=== PATIENT | male | born 1995 | race Hispanic/Latino ===

== ENCOUNTER 2024-02-11 13:08 | Observation (INO) | payer SELFPAY ==
[2024-02-11] MEDS ORDERED: ONDANSETRON 4 MG/2 ML VIAL ONE (13:29)
[2024-02-11] MEDS ORDERED: NA CHLORIDE 0.9% 1,000 ML ONE ×2 (13:29→14:38)
[2024-02-11 13:44] LABS: Absolute Lymphocytes (CBC) 1.2 K/uL (0.7-4.9); Absolute Monocytes 0.9 K/uL (0.1-1.3); Absolute Neutrophil 5.5 K/uL (1.8-8.0); Basophils % 0.6 % (0-1.3); Eosinophils % 0.6 % (0-4.4); Hematocrit 49.4 % (39.6-49.0); Hemoglobin 17.1 g/dL (13.6-17.9); Lymphocytes % 15.1 % (15.3-44.8); MCH 32.9 pg (27.0-35.0); MCHC 34.6 g/dL (32.0-36.0); MPV 10.9 fL (7.6-11.3); Monocytes % 11.7 % (3.3-12.3); Nucleated Red Blood Cells % 0.1 % (0-0); Platelets 258 thou/uL (152-406); Red Cell Distribution Width 12.6 % (12.1-15.2)
[2024-02-11 14:02] LABS: Albumin 5.6 g/dL (3.4-5.0); Albumin/Globulin Ratio 1.4 (1.1-1.8); Anion Gap 16.2 mEq/L (5.0-15.0); Bilirubin Total 1.3 mg/dL (0.2-1.0); Globulin 4.1 g/dL (2.3-3.5); Potassium 3.2 mEq/L (3.5-5.1); Protein, Total 9.7 g/dL (6.4-8.2)
--- NOTE | 2024-02-11 14:15 | ER ---
Nurse's Notes [facility] Name: Moises Lambert Age: 28 yrs Sex: Male : 1995 Arrival Date: 02/11/2024 Time: 13:08 Bed 20 Private MD: Diagnosis: Dehydration;Acute kidney failure, unspecified Presentation: 02/10 13:15 Chief complaint: Patient states: Pt c/o abdominal cramping, vomiting and feeling week dd2 after working in the sun all day Friday. Pt states he's trying to drink but unable to. Coronavirus screen: At this time, the client does not indicate any symptoms associated with coronavirus-19. Ebola Screen: No symptoms or risks identified at this time. Initial Sepsis Screen: Does the patient meet any 2 criteria? No. Patient's initial sepsis screen is negative. Does the patient have a suspected source of infection? No. Patient's initial sepsis screen is negative. Risk Assessment: Do you want to hurt yourself or someone else? Patient reports no desire to harm self or others. Onset of symptoms is unknown. 13:15 Method Of Arrival: Ambulatory dd2 13:15 Acuity: JUAN DANIEL 3 dd2 Triage Assessment: 13:18 General: Appears uncomfortable, ill, Behavior is calm, cooperative. Pain: Complains of dd2 pain in abdomen. Derm: No deficits noted. Historical: - Allergies: 13:18 No Known Allergies; dd2 - Home Meds: 13:18 None [Active]; dd2 - PMHx: 13:18 None; dd2 - PSHx: 13:18 None; dd2 - Immunization history:: Adult Immunizations unknown. - Infectious Disease History:: Denies. - Social history:: Smoking status: Patient denies any tobacco usage or history of. Patient uses street drugs, marijuana. Screenin:45 [facility] ED Fall Risk Assessment (Adult) History of falling in the last 3 months, ph including since admission No falls in past 3 months (0 pts) Confusion or Disorientation No (0 pts) Intoxicated or Sedated No (0 pts) Impaired Gait No (0 pts) Mobility Assist Device Used No (0 pt) Altered Elimination No (0 pt) Score/Fall Risk Level 0 - 2 = Low Risk Oriented to surroundings, Maintained a safe environment, Hourly rounding (assess needs \T\ fall precautionary measures) done. Abuse screen: Denies threats or abuse. Denies injuries from another. Nutritional screening: No deficits noted. Tuberculosis screening: No symptoms or risk factors identified. Assessment: 13:44 General: Appears in no apparent distress. comfortable, slender, well groomed, Behavior ph is calm, cooperative, appropriate for age. Pain: Complains of pain in cramping in abdomen. Neuro: Level of Consciousness is awake, alert, obeys commands, Oriented to person, place, time, situation. Cardiovascular: Capillary refill < 3 seconds in bilateral fingers Patient's skin is warm and dry. Respiratory: Airway is patent Respiratory effort is even, unlabored. GI: Reports cramping, nausea, vomiting. : Reports decreased urination w/ dark urine. Derm: Skin is pink, warm \T\ dry. Vital Signs: 13:15 BP 124 / 88; Pulse 86; Resp 14; Temp 97.3; Pulse Ox 97% ; Weight 52.16 kg; Height 5 ft. dd2 6 in. ; 13:46 BP 122 / 85; Pulse 58; Resp 18; Pulse Ox 99% on R/A; ph 16:22 BP 133 / 75; Pulse 68; Resp 18; Temp 97.9; Pulse Ox 98% on R/A; ph 13:15 Body Mass Index 18.56 (52.16 kg, 167.64 cm) dd2 ED Course: 13:11 Patient arrived in ED. mr 13:13 Marques NildaJOSE ANGEL pastor [facility] kb 13:13 Riaz Jose MD is Attending Physician. kb 13:18 Triage completed. dd2 13:18 Arm band placed on left wrist. Patient placed in an exam room, on a stretcher, on pulse dd2 oximetry. 13:20 Smita Broderick, JB is Primary Nurse. ph 13:35 Initial lab(s) drawn, by me, sent to lab. Inserted saline lock: 20 gauge in right ph antecubital area, using aseptic technique. Blood collected. Flushed with 10 mL NS. 13:46 Patient has correct armband on for positive identification. Pulse ox on. NIBP on. Door ph closed. Noise minimized. Warm blanket given. 14:15 Danny Figueredo MD is Hospitalizing Provider. kb 14:31 CT Abd/Pelvis - Without Contrast In Process Unspecified. EDMS 16:22 No provider procedures requiring assistance completed. Patient admitted, IV remains in ph place. Administered Medications: 13:35 Drug: NS 0.9% IV 1000 ml IV at 1 bolus Per protocol; 1000 mL bolus Route: IV; Rate: 1 ph bolus; Site: right antecubital; 14:45 Follow up: Response: No adverse reaction; IV Status: Completed infusion; IV Intake: ph 1000ml 13:35 Drug: Ondansetron IVP 4 mg IVP once; over 2 minutes Route: IVP; Site: right antecubital;ph 14:45 Follow up: Response: No adverse reaction ph 14:44 Drug: NS 0.9% IV 1000 ml IV at 1000 ml once Route: IV; Rate: 1000 ml; Site: right ph antecubital; 16:22 Follow up: Response: No adverse reaction; IV Status: Completed infusion; IV Intake: ph 1000ml 14:44 Drug: Potassium Chloride PO 40 mEq PO once Route: PO; ph 16:22 Follow up: Response: No adverse reaction ph Medication: 13:46 VIS not applicable for this client. ph Intake: 14:45 IV: 1000ml; Total: 1000ml. ph 16:22 IV: 1000ml; Total: 2000ml. ph Outcome: 14:15 Decision to Hospitalize by Provider. kb 16:22 Admitted to Med/surg accompanied by tech, via wheelchair, room 218, with chart, ph 16:22 Condition: stable 16:22 Instructed on the need for admit, 16:23 Patient left the ED. ph Signatures: Dispatcher [employer] EDCA Nilda Mohan, DAVID-C CHAINMAN-Ly Marti, Reg Reg mr Smita Broderick, RN RN ph STANISLAV DIAZ, RN RN dd2
--- NOTE | 2024-02-11 14:15 | EDPHYS ---
Physician Documentation [facility] Name: Moises Lambert Age: 28 yrs Sex: Male : 1995 Arrival Date: 02/11/2024 Time: 13:08 Bed 20 Private MD: ED Physician Riaz Jose HPI: 02/10 13:18 This 28 yrs old Male presents to ER via Unassigned with complaints of kb Dehydrated, Heat Exposure. 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 States he was sent home on Friday because he wasn't feeling well, went back on Friday but started feeling bad again around 10AM so he was sent home again. States he last urinated last night and it was very dark. States he has been trying to drink fluids, but has not been able to keep them down. Denies fever, diarrhea. . Historical: - Allergies: 13:18 No Known Allergies; dd2 - Home Meds: 13:18 None [Active]; dd2 - PMHx: 13:18 None; dd2 - PSHx: 13:18 None; dd2 - Immunization history:: Adult Immunizations unknown. - Infectious Disease History:: Denies. - Social history:: Smoking status: Patient denies any tobacco usage or history of. Patient uses street drugs, marijuana. ROS: 13:17 Constitutional: As per HPI kb Exam: 13:17 Constitutional: This is a well developed, well nourished patient who is awake, alert, kb and in no acute distress. Head/Face: Normocephalic, atraumatic. ENT: Moist Mucous membranes Cardiovascular: Regular rate Respiratory: Respirations even and unlabored. No increased work of breathing. Talking in full sentences Abdomen/GI: Soft, non-tender. No distention Skin: Warm, dry with normal turgor. Normal color. MS/ Extremity: Pulses equal, no cyanosis. Neurovascular intact. Full, normal range of motion. Neuro: Awake and alert, GCS 15, oriented to person, place, time, and situation. Moves all extremities. Normal gait. Vital Signs: 13:15 BP 124 / 88; Pulse 86; Resp 14; Temp 97.3; Pulse Ox 97% ; Weight 52.16 kg; Height 5 ft. dd2 6 in. ; 13:46 BP 122 / 85; Pulse 58; Resp 18; Pulse Ox 99% on R/A; ph 16:22 BP 133 / 75; Pulse 68; Resp 18; Temp 97.9; Pulse Ox 98% on R/A; ph 13:15 Body Mass Index 18.56 (52.16 kg, 167.64 cm) dd2 MDM: 13:13 Patient medically screened. kb 13:17 Data reviewed: vital signs, nurses notes. kb 13:29 ED course: Pt is a 28 year old male who presents for nausea, vomiting, cramping after kb getting overheated over the last 3 days. On exam, pt has no abd tenderness but reports pain to upper abd described as cramping especially during and after vomiting. HPI concerning for acute renal failure, dehydration, abnormal electrolytes, rhabdomyolysis. Serum labs and urinalysis ordered, as well as, fluids and antiemetics. . 14:15 Consideration of Admission/Observation Patient was admitted/placed on observation. kb Escalation of care including admission/observation considered. Management of patient was discussed with the following: Hospitalist: James Sam NP accepts pt for admission under Dr Figueredo. Counseling: I had a detailed discussion with the patient and/or guardian regarding the historical points, exam findings, and any diagnostic results supporting the discharge/admit diagnosis, lab results, the need for further work-up and treatment in the hospital. 02/10 13:17 Order name: CBC with Diff; Complete Time: 13:54 kb 02/10 13:17 Order name: CMP; Complete Time: 14:06 kb 02/10 13:17 Order name: Lipase; Complete Time: 14:06 kb 02/10 13:17 Order name: Urinalysis w/ reflexes kb 02/10 13:17 Order name: CPK; Complete Time: 14:06 kb 02/10 14:18 Order name: CT Abd/Pelvis - Without Contrast; Complete Time: 14:47 kb 02/10 13:17 Order name: IV Saline Lock; Complete Time: 14:37 kb 02/10 13:17 Order name: Labs collected and sent; Complete Time: 14:37 kb Administered Medications: 13:35 Drug: NS 0.9% IV 1000 ml IV at 1 bolus Per protocol; 1000 mL bolus Route: IV; Rate: 1 ph bolus; Site: right antecubital; 14:45 Follow up: Response: No adverse reaction; IV Status: Completed infusion; IV Intake: ph 1000ml 13:35 Drug: Ondansetron IVP 4 mg IVP once; over 2 minutes Route: IVP; Site: right antecubital;ph 14:45 Follow up: Response: No adverse reaction ph 14:44 Drug: NS 0.9% IV 1000 ml IV at 1000 ml once Route: IV; Rate: 1000 ml; Site: right ph antecubital; 16:22 Follow up: Response: No adverse reaction; IV Status: Completed infusion; IV Intake: ph 1000ml 14:44 Drug: Potassium Chloride PO 40 mEq PO once Route: PO; ph 16:22 Follow up: Response: No adverse reaction ph Disposition Summary: 02/11/24 14:15 Hospitalization Ordered Notes: Hospitalization Status: Observation kb Provider: Danny Figueredo Location: Telemetry/MedSurg (observation) kb Condition: Stable kb Problem: new kb Symptoms: are unchanged kb Bed/Room Type: Standard Room Assignment: 218(02/11/24 15:39) bd Diagnosis - Dehydration kb - Acute kidney failure, unspecified kb Forms: - Medication Reconciliation Form kb - SBAR form kb - Leadership Thank You Letter kb Signatures: Dispatcher [employer] Nilda Myrick FNP-C FNP-Lalita Fitch Patricia, RN RN STANISLAV Lopez RN RN dd2 Corrections: (The following items were deleted from the chart) 13:17 13:17 CBC+H.LAB.BRZ ordered. EDMS EDMS 13:17 13:17 COMPREHENSIVE METABOLIC PANEL+C.LAB.BRZ ordered. EDMS EDMS 13:17 13:17 LIPASE+C.LAB.BRZ ordered. EDMS EDMS 13:17 13:17 Urinalysis+U.LAB.BRZ ordered. EDMS EDMS 13:17 13:17 CREATINE PHOSPHOKINASE+C.LAB.BRZ ordered. EDMS EDMS 14:19 14:15 Test considered but Not performed: CT: ct abd considered but pt has no abd kb tenderness. kb 15:39 14:15 kb bd
[2024-02-11] MEDS ORDERED: POTASSIUM CL SA 10 MEQ TAB PO ONE (14:39)
--- NOTE | 2024-02-11 14:45 | RAD REPORT ---
EXAM DESCRIPTION: CT - Abdomen Pelvis Wo Contrast - 02/11/2024 2:29 pm CLINICAL HISTORY: Abdominal pain COMPARISON: None TECHNIQUE: Computed axial tomography of the abdomen and pelvis was obtained. IV and oral contrast we re not requested. All CT scans are performed using dose optimization technique as appropriate and may include automated exposure control or mA/KV adjustment according to patient size. FINDINGS: The evaluation of solid organs, vessels and bowel is limited secondary to the lack of con trast administration. The liver, spleen, pancreas, adrenals and kidneys appear grossly normal. The appendix is normal. There is no evidence of diverticulitis. Cholelithiasis Small areas of sclerosis within the spine, pelvis and femora IMPRESSION: Cholelithiasis Small areas of sclerosis within the spine, pelvis and femora are nonspecific. These could all be leonard gn or malignant. Bone scan may be helpful for further evaluation
--- NOTE | 2024-02-11 16:38 | P.HP ---
Certification for Inpatient Patient admitted to: Observation With expected LOS: <2 Midnights Patient will require the following post-hospital care: None Practitioner: I am a practitioner with admitting privileges, knowledge of patient current condition, hospital course, and medical plan of care. Services: Services provided to patient in accordance with Admission requirements found in Title 42 Section 412.3 of the Code of Federal Regulations Patient History Date of Service: 02/11/24 Reason for admission: MATT History of Present Illness: Otherwise healthy 28-year-old male presents the emergency department for chief complaint of dehydration/heat exhaustion. 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 Patient was evaluated in the emergency department his labs are significant for a cute kidney injury with a creatinine of 2.3 sodium 131 potassium 3.2 lipase [address] abdomen pelvis was performed without IV contrast which showed cholelithiasis, small areas of sclerosis within the spine, pelvis and femoral are nonspecific. These could all be benign or malignant. Bone scan may be helpful for further evaluation. ED prior wishes to admit patient under observation for MATT, dehydration - Past Medical/Surgical History -: None -: None Psychosocial/ Personal History: Lives at home with his family in [place] - Family History Family History: Reviewed- Non-Contributory - Social History Smoking Status: Never smoker Alcohol use: No CD- Drugs: No Caffeine use: Yes Place of Residence: Home Review of Systems 10-point ROS is otherwise unremarkable General: Weakness, Malaise Physical Examination - Physical Exam General: Alert, In no apparent distress, Oriented x3 HEENT: Atraumatic, PERRLA, Other (Mucous membranes dry) Neck: Supple, 2+ carotid pulse no bruit, No LAD Respiratory: Clear to auscultation bilaterally, Normal air movement Cardiovascular: Regular rate/rhythm, Normal S1 S2 Gastrointestinal: Normal bowel sounds, No tenderness Musculoskeletal: No tenderness Integumentary: No rashes Neurological: Normal speech, Normal strength at 5/5 x4 extr, Normal tone, Normal affect - Studies Laboratory Data (last 24 hrs) 02/11/24 02/11/24 13:35 13:35 WBC 7.70 Hgb 17.1 Hct 49.4 H Plt Count 258 Sodium 131 L Potassium 3.2 L BUN 46 H Creatinine 2.31 H Glucose 138 H Total Bilirubin 1.3 H AST 26 ALT 40 Alkaline Phosphatase 121 H Lipase 123 H Assessment and Plan - Plan Assessment: Acute kidney injury Dehydration/exhaustion Hyponatremia Hypokalemia Incidental CT findings-multiple bony sclerotic lesions Plan: Acute kidney injury Dehydration/exhaustion Hyponatremia Received 2 L IV fluid bolus in ED Continue aggressive IV fluids Repeat chemistry this evening Patient requesting discharge prior to 10 PM given previous obligations If he is tolerating p.o. and he has significant improvement in renal function we will consider discharge this evening Hypokalemia Replaced in the ED, will repeat chemistry this evening Incidental CT findings-multiple bony sclerotic lesions Discussed with patient these findings may be benign or represent malignancy and stressed importance of outpatient follow-up for bone scan DVT PPX: Heparin subcu Code status: Full Discharge Plan: Home Plan to discharge in: 24 Hours - Advance Directives Does patient have a Living Will: No Does patient have a Durable POA for Healthcare: No - Code Status/Comfort Care Code Status Assessed: Yes (Full code) Critical Care: No Time Spent Managing Pts Care (In Minutes): 60
[2024-02-11 16:51] VITALS: BP 133/75; TEMP 97.9; O2SAT 98
[2024-02-11 16:52] VITALS: BMI 18.6
[2024-02-11] MEDS ORDERED: ONDANSETRON 4 MG/2 ML VIAL IV PRN (17:23)
[2024-02-11] MEDS: NA CHLORIDE 0.9% 1,000 ML IV SCH (18:03)
[2024-02-11 19:48] LABS: Anion Gap 13.6 mEq/L (5.0-15.0); Potassium 3.6 mEq/L (3.5-5.1)
--- NOTE | 2024-02-11 20:55 | RAD REPORT ---
EXAM DESCRIPTION: US - Renal Ultrasound-Complete - 02/11/2024 8:23 pm CLINICAL HISTORY: Acute renal insufficiency COMPARISON: None FINDINGS: The right kidney measures 10 cm with a normal echotexture. The left kidney measures 10 cm with a normal echotexture. Hydronephrosis is not seen. No gross abnormality of bladder IMPRESSION: Unremarkable renal ultrasound.
[2024-02-11] MEDS ORDERED: HEPARIN 5000 UNIT/ML 1 ML VIAL SQ SCH (21:00)
== END 2024-02-11 21:20 | disposition home or self-care (01) ==
LOC: ER 13:08 → ERHOLD 14:49 → 2ND 16:09
PROVIDERS: ADMIT Hospitalist; ATTEND Hospitalist
DX: E86.0 Dehydration (principal); N17.9 Acute kidney failure, unspecified; E87.1 Hypo-osmolality and hyponatremia; E87.6 Hypokalemia; G95.89 Other specified diseases of spinal cord
CPT/HCPCS: 36415; 74176; 76770; 80048; 80053; 82550; 83690; 85025; J2405; J7030